=== PATIENT | female | born 1985 | race African-American/Black ===

== ENCOUNTER 2022-05-20 09:13 | Emergency (ER) | payer MEDICAID, OTHER ==
[~2022-05-20] VITALS: Ht 157.5 cm; Wt 73.5 kg
[2022-05-20 09:15] VITALS: BP 112/72
[2022-05-20] MEDS ORDERED: KETOROLAC 60 MG VIAL (30MG/ML) IM ONE (12:30)
[2022-05-20] MEDS ORDERED: IBUP-2070 PO (13:35)
[2022-05-20] MEDS ORDERED: CYCL5TAB PO (13:35)
== END 2022-05-20 13:56 | disposition home or self-care (01) ==
LOC: EDH 09:13
DX: S16.1XXA Strain of muscle, fascia and tendon at neck level, initial encounter (principal); S40.011A Contusion of right shoulder, initial encounter; V89.2XXA Person injured in unspecified motor-vehicle accident, traffic, initial encounter; Y93.89 Activity, other specified; Y92.89 Other specified places as the place of occurrence of the external cause; Y99.8 Other external cause status
CPT/HCPCS: 99285; 72125; 73030; 96372; J1885